=== PATIENT | female | born 1935 | race American Indian/Alaskan Native ===

== ENCOUNTER 2019-05-26 09:23 | Outpatient (CLI) | payer MEDICARE ==
--- NOTE | 2019-05-26 11:54 | Cat Scan Report ---
CTA ABDOMEN AND PELVIS WITH CONTRAST INDICATION : ABDOMINAL AORTIC ANEURYSM WITHOUT RUPTURE/ICD-10:171.4:. TECHNIQUE: Axial imaging performed through the abdomen and pelvis, with contrast bolus timing set to maximize opacification of the aorta. 3-plane MIP reformatted images were obtained. All CT scans at this location are performed using CT dose reduction for ALARA by means of automated exposure control. 60 mL of Omnipaque 350 intravenous contrast administered. COMPARISON: None at this facility FINDINGS: Angiographic findings: A large infrarenal AAA is identified extending from just below the renal arter ies to the bifurcation. Maximum diameter of the AAA measures 8.1 cm in transverse dimension on image 72. A stent is identified within the aorta which appears to be discontinuous. The proximal edge of th e stent is located at the origin of the celiac axis. The midportion of the stent appears discontinuou s with 2.8 cm of separation from the distal iliac components. There is a large amount of mural thromb us within the aneurysm sac with evidence of mild extravasation of contrast at the site of discontinui ty. This is consistent with a type IIIa endoleak. There are moderate calcified plaques throughout the abdominal aorta and iliac arteries. No evidence for stenosis or dissection. No retroperitoneal hemor rhage is identified. There are moderate calcifications at the origins of the celiac axis, SMA and keith ateral single renal arteries but no hemodynamically significant stenosis is identified. The PARESH is oc cluded. Non-angiographic findings: Lungs/bones: The visualized lung bases are adequately aerated. Moderate to severe cardiomegaly is ev ident. A small pericardial effusion is also identified. Abdomen/pelvis: There is mild hepatomegaly but no evidence for mass or surface nodularity. Scattered liver cysts are noted. The biliary system, pancreas, spleen and adrenal glands are unremarkable. Bot h kidneys are atrophic with scattered cysts. No obvious mass, calculus or hydronephrosis. The bowel l oops are grossly normal. The bladder is empty. Hysterectomy changes are suspected. Bony structures ar e intact. Advanced to degenerative changes in the lower lumbar spine. Moderate dextrocurvature to the lumbar spine is also evident. 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 Please see above. The AAA measures 8.1 cm in maximum diameter. No evidence for retroperitoneal hemorrhage. Signer Name: Sabino Roth Jr, MD Signed: 05/26/2019 11:50 AM Workstation Name: [id number]
== END 2019-05-26 09:24 | disposition home or self-care (01) ==
LOC: CT 09:23
PROVIDERS: ATTEND Surgery Vascular Surgery
DX: I71.4 Abdominal aortic aneurysm, without rupture (principal)
CPT/HCPCS: 36415; 74174; 82565; 84520; Q9967

== ENCOUNTER 2019-06-04 07:26 | Inpatient (IN) | payer MEDICARE ==
[2019-06-04 08:31] LABS: Basophils % (Auto) 0.6 % (0.0-1.8); Eosinophils # (Auto) 0.3 K/mm3 (0.0-0.4); Eosinophils % (Auto) 5.7 % (0.0-4.3); Hematocrit 35.8 % (30.3-42.9); Hemoglobin 11.9 gm/dl (10.1-14.3); Lymphocytes # (Auto) 0.8 K/mm3 (1.2-5.4); Lymphocytes % (Auto) 15.1 % (13.4-35.0); Mean Corpuscular HGB Conc 33 % (30-34); Mean Corpuscular Volume 101 fl (79-97); Monocytes # (Auto) 0.4 K/mm3 (0.0-0.8); Platelet Count 141 K/mm3 (140-440); Red Blood Count 3.54 M/mm3 (3.65-5.03); Red Cell Distribution Width 15.8 % (13.2-15.2)
[2019-06-04 08:42] LABS: Calcium 9.5 mg/dL (8.4-10.2); INR 1.15 (0.87-1.13)
[2019-06-04] MEDS ORDERED: NACL 0.9% 500 ML 500 ML IV SCH (09:00)
[2019-06-04] MEDS ORDERED: HEPARIN 10,000 UNITS/10 ML ONE (10:32)
[2019-06-04] MEDS ORDERED: HEPARIN/NS 5000 UNIT/500ML(CATH LAB) 500 ML IR ONE (10:32)
[2019-06-04] MEDS: SUBLIMAZE ONE ×2 (11:01→11:06)
[2019-06-04] MEDS: VERSED ONE ×2 (11:01→11:06)
[2019-06-04] MEDS: XYLOCAINE 2% INFILTRATI ONE ×3 (11:01→11:35)
[2019-06-04] MEDS ORDERED: TYLENOL PO PRN (12:55)
[2019-06-04] MEDS ORDERED: SODIUM CHLORIDE FLUSH SYRINGE 10 ML IV PRN (12:55)
[2019-06-04] MEDS ORDERED: ZOFRAN IV PRN (12:55)
--- NOTE | 2019-06-04 13:28 | Operative Report ---
Operative Report Operative Report: Date of Procedure: 06/04/2019 Pre-operative Diagnosis: Abdominal Aortic Aneurysm Status Post EVAR With Eviden ce of Endoleak Post-operative Diagnosis: Same With Graft Migration Procedure(s): 1. Access Left Arm AV Graft Arterial Was 6 [place] Sheath 2. Catheter in Abdominal Aorta 3. Diagnostic Abdominal Aortogram 4. Radiologic Supervision with Interpretation Surgeon: Blaine Marie M.D. Material Control Supervisor: None Anesthesia: Local and IV Sedation EBL: Minimal Counts: Correct Complications: None Condition: Stable Specimen: None Indication: The patient is an 84-year-old female with a history of an abdominal aortic aneurysm that was repaired in [place] in September 2018. She was informed that she had a type II endoleak at the completion of the procedure. Should a follow- up CT scan in February 2019 with evidence of continued endoleak and was referred to me after after moving to live with her daughter in [place]. On physical examination her aneurysm was pulsatile bleeding me to believe this was much more than a type II endoleak so I sent her for a follow-up CT scan revealing that the aneurysm had increased by greater than 1 cm and less than 4 months. Given this finding and her physical exam I felt that she needed a diagnostic angiogram to determine the exact type of endoleak and plan for possible repair. She and her daughter were given the risk, benefits, and alternative procedures and consented to the procedure. Angiographic Findings: Diagnostic aortogram was performed in multiple views including AP and several obliquities. This revealed that the celiac artery as well as the superior mesenteric artery were patent. Bilateral renal arteries were patent. The aortic endograft as well as bilateral limb extensions were patent. There was no obvious evidence of an endoleak however it became obvious that the sealing rings were in the body of the aneurysm and well below the left renal artery which was the lowest. Although I could not see angiographic evidence of endoleak this would indicate that this may be a type IA endoleak that is positional in nature. Description of Procedure: The patient was brought to the wood preserving plant laborer and laid in supine position. After she was adequately sedated her left arm was prepped and draped in normal sterile fashion. Lidocaine was used to anesthetize the skin overlying the graft and then micropuncture technique was used to access the graft towards the arterial inflow. A 6 [place] sheath was placed by Seldinger technique. A 0.035 Bentson wire and pigtail catheter were advanced into the thoracic aorta and used to cannulate the descending aorta. The catheter and wire were advanced into the abdominal aorta and a catheter was positioned just above the graft at the level of the renal arteries. An aortogram was performed in multiple views including an AP view and multiple obliquities. There was no obvious evidence of any endoleak however it was evident that the graft sealing rings were well below the renal arteries. After completing the diagnostic films I reinserted the Bentson wire and removed the pigtail catheter over the wire. The wire was then removed and a 2-0 Ethilon in a slipknot fashion was used to close the entry site after removing the sheath. A sterile dressing was then placed over the entry site and the patient was transported to the recovery area in stable condition.
--- NOTE | 2019-06-04 13:31 | Event Note ---
Date: 06/04/19 After reviewing the patient's diagnostic films as well as her CT scan and discussing the case with the [employer] Rep, the plan will be to place an extension cuff between the flow divider and the renal arteries to gain a seal in the aneurysm and treat the endoleak. This is planned for tomorrow in the salvage laborer. This will be performed in a percutaneous fashion. I have discussed this with the patient and her daughter including the risk, benefits, and alternative procedures. This includes bleeding, potential of not getting an adequate seal, and the potential for having to cover the left renal artery to gain a seal. They have expressed understanding of the procedure as well as the risks and agreed to proceed.
[2019-06-04] MEDS ORDERED: ULTRAM PO PRN (14:58)
[2019-06-04] MEDS: TUMS PO SCH ×2 (20:12→20:47)
[2019-06-04] MEDS: DICLOFENAC 1% TP SCH ×2 (20:46→21:23)
[2019-06-04] MEDS: COREG PO SCH (21:16)
[2019-06-04] MEDS: SODIUM CHLORIDE FLUSH SYRINGE 10 ML IV SCH (21:23)
[2019-06-04] MEDS ORDERED: DICLOFENAC SODIUM TP SCH (22:00)
[2019-06-04] MEDS ORDERED: NON-FORMULARY (Rosuvastatin Calcium [Crestor] 20 MG) PO SCH (22:00)
[2019-06-05] MEDS: SYNTHROID PO SCH (05:54)
[2019-06-05 06:57] LABS: Calcium 9.1 mg/dL (8.4-10.2)
[2019-06-05] MEDS: TUMS PO SCH ×3 (07:33→20:16)
[2019-06-05] MEDS ORDERED: ANCEF/STERILE WATER 2 GM/20 ML 2 GM/20 ML SYRINGE IV ONE (08:31)
[2019-06-05] MEDS ORDERED: NACL 0.9% 500 ML 500 ML ONE (08:31)
[2019-06-05] MEDS ORDERED: HEPARIN 10,000 UNITS/10 ML ONE (08:31)
[2019-06-05] MEDS ORDERED: HEPARIN/NS 5000 UNIT/500ML(CATH LAB) 1,000 ML IR ONE (08:31)
[2019-06-05] MEDS: VERSED ONE ×4 (09:20→09:48)
[2019-06-05] MEDS: SUBLIMAZE ONE ×4 (09:20→09:48)
[2019-06-05] MEDS: XYLOCAINE 2% INFILTRATI ONE ×3 (09:20→09:46)
[2019-06-05] MEDS ORDERED: CALTRATE PLUS PO SCH (10:00)
[2019-06-05] MEDS ORDERED: BIOTIN 1 MG PO SCH (10:00)
[2019-06-05] MEDS ORDERED: CALCIUM VIT D3 PO SCH (10:00)
[2019-06-05] MEDS ORDERED: SUBLIMAZE ONE (10:07)
[2019-06-05] MEDS ORDERED: VERSED ONE (10:07)
[2019-06-05] MEDS: COREG PO SCH ×2 (10:38→22:04)
[2019-06-05] MEDS: ZESTRIL PO SCH (10:39)
[2019-06-05] MEDS: DICLOFENAC 1% TP SCH ×2 (10:39→22:38)
[2019-06-05] MEDS: HALFPRIN EC PO SCH (10:39)
[2019-06-05] MEDS: SODIUM CHLORIDE FLUSH SYRINGE 10 ML IV SCH ×2 (10:39→22:08)
[2019-06-05] MEDS: NORVASC PO SCH (10:39)
--- NOTE | 2019-06-05 11:38 | Consultation ---
History of Present Illness Consult date: 06/05/19 Requesting physician: BLAINE MARIE History of present illness: This is a 84 yo AAF with past medical history of Hypertension, ESRD on HD MWF schedule, h/o AAA s/p repair in sep 2018, recently moved from [place] to [place] to live with her daughter, who was recently now admitted for elective angiogram/AAA repair since recent CT A/P showed increased AAA along with endoleak of aortic stents. Pt underwent vascular procedure this AM without complications, patient was admitted to the ICU for closer monitoring post procedure. HR was borderline low around 40s, pt is currently on carvedilol, which is on hold due to bradycardia. Last HD was on Sat, pt has LUE AVG. Pt denies fever, chills, n/v/d, CP, palpitations, dysuria, abdominal pain. Patient was seen and examined. Vitals, labs, medications, chart reviewed. Out patient medical records reviewed. She is resting peacefully in bed, states she has a CPAP machine, nasal mask, and she has not been compliant with it because of discomfort. She also gives a history of endocarditis. Her daughter who is POA, is at the bedside. Discussed with Dr. Blaine Marie, vascular surgeon Past History Past Medical History: ESRD, hypertension, other (AAA), endocarditis, sleep apnea, hypothyroidism Hyperlipidemia, HTN, Post menopausal with severe host flashes on estrogen replacement Past Surgical History: Other (AAA repair, angioplasty ), AV fistula Social history: denies: smoking, alcohol abuse, prescription drug abuse, IV drug use Family history: hypertension, daughter of breast cancer a few years ago Sister--DM; Heart disease Mother- Hypertensive disorder, CKD Medications and Allergies Allergies Allergy/AdvReac Type Severity Reaction Status Date / Time Sulfa (Sulfonamide Allergy Intermediate Hives Verified 06/04/19 08:04 Antibiotics) Home Medications Medication Instructions Recorded Confirmed Last Taken Type Acetaminophen [Acetaminophen TAB] 325 mg PO DAILY PRN 06/04/19 06/04/19 Unknown History Aspirin EC 81 mg PO DAILY 06/04/19 06/04/19 06/03/19 History 81mg Biotin [Biotin 1] 1 mg PO DAILY 06/04/19 06/04/19 06/03/19 History 1mg Calcium 600-Vit D3 400 Tablet 1 tab PO DAILY 06/04/19 06/04/19 06/03/19 History 1 Calcium Carbonate [Tums 500MG CHEW] 750 mg PO TID 06/04/19 06/04/19 06/03/19 History 750mg Carvedilol [Coreg] 25 mg PO BID 06/04/19 06/04/19 06/04/19 History 25mg Cetirizine HCl [Cetirizine 5mg tab] 10 mg PO DAILY PRN 06/04/19 06/04/19 06/03/19 History 10mg Diclofenac Sodium [Diclofono] 2.5 gm TP BID 06/04/19 06/04/19 06/03/19 History 2.5 Levothyroxine [Synthroid] 75 mcg PO DAILY 06/04/19 06/04/19 06/04/19 History 75mcg Lisinopril [Zestril TAB] 20 mg PO DAILY 06/04/19 06/04/19 06/04/19 History 20mg Rosuvastatin Calcium [Crestor] 20 mg PO QHS 06/04/19 06/04/19 06/03/19 History 20mg amLODIPine [Norvasc] 10 mg PO DAILY 06/04/19 06/04/19 06/03/19 History 10mg traMADol [Ultram 50 MG tab] 50 mg PO BID PRN 06/04/19 06/04/19 06/03/19 History 50mg Calcium/Soy/Cohosh/Melatonin 1 each PO HS 06/05/19 06/05/19 06/04/19 History [Estroven Nighttime Caplet] amLODIPine [Norvasc] 10 mg PO DAILY 06/05/19 06/05/19 06/04/19 10:00 History Active Meds: Active Medications Acetaminophen (Tylenol) 650 mg PO Q4H PRN PRN Reason: Pain MILD(1-3)/Fever >100.5/ABEL Amlodipine Besylate (Norvasc) 10 mg PO DAILY [facility] Last Admin: 06/05/19 10:39 Dose: Not Given Documented by: Aspirin (Halfprin Ec) 81 mg PO DAILY [facility] Last Admin: 06/05/19 10:39 Dose: Not Given Documented by: Atorvastatin Calcium (Lipitor) 40 mg PO QHS [facility] Last Admin: 06/04/19 21:17 Dose: 40 mg Documented by: Calcium Carbonate/Glycine (Tums) 750 mg PO TID [facility] Last Admin: 06/05/19 07:33 Dose: Not Given Documented by: Carvedilol (Coreg) 25 mg PO BID [facility] Last Admin: 06/05/19 10:38 Dose: Not Given Documented by: Diclofenac Sodium (Diclofenac 1%) 1 applic TP BID [facility] Last Admin: 06/05/19 10:39 Dose: Not Given Documented by: Levothyroxine Sodium (Synthroid) 75 mcg PO 0600 [facility] Last Admin: 06/05/19 05:54 Dose: 75 mcg Documented by: Lisinopril (Zestril) 20 mg PO DAILY [facility] Last Admin: 06/05/19 10:39 Dose: Not Given Documented by: Ondansetron HCl (Zofran) 4 mg IV Q8H PRN PRN Reason: Nausea And Vomiting Sodium Chloride (Sodium Chloride Flush Syringe 10 Ml) 10 ml IV BID [facility] Last Admin: 06/05/19 10:39 Dose: Not Given Documented by: Sodium Chloride (Sodium Chloride Flush Syringe 10 Ml) 10 ml IV PRN PRN PRN Reason: LINE FLUSH Tramadol HCl (Ultram) 50 mg PO BID PRN PRN Reason: Mild Pain unrelieved by APAP Last Admin: 06/05/19 02:48 Dose: 50 mg Documented by: Physical Examination Vital signs: Vital Signs Temp Pulse Resp BP 97.8 F 50 L 14 161/58 06/04/19 08:15 06/04/19 08:15 06/04/19 08:15 06/04/19 08:15 General appearance: no acute distress, alert Eyes: non-icteric ENT: oropharynx moist Neck: supple, no lymphadenopathy, no JVD Effort: normal Ascultation: Bilateral: diminished breath sounds Cardiovascular: regular rate and rhythm, murmur noted (systolic), other (S1,S2) Gastrointestinal: normoactive bowel sounds, soft, non-tender, non-distended Integumentary: normal Extremities: no cyanosis, no edema, pulses normal, no ischemia or petechiae, other (bilateral femoral sheats with dressings) normal mental status, non-focal exam, pupils equal and round, CN II-XII normal, motor strength normal and mood appropriate, affect normal Results - Laboratory Findings CBC and BMP: 06/04/19 08:17 06/05/19 05:57 PT/INR, D-dimer PT 14.4 Sec. (12.2-14.9) 06/04/19 08:17 INR 1.15 (0.87-1.13) H 06/04/19 08:17 Abnormal lab findings: Abnormal Labs 06/04/19 06/04/19 06/04/19 08:17 08:17 08:17 RBC 3.54 L MCV 101 H MCH 34 H RDW 15.8 H Eos % (Auto) 5.7 H Lymph # 0.8 L Seg Neutrophils % 71.6 H INR 1.15 H Sodium Potassium BUN 50 H Creatinine 8.0 H 06/05/19 05:57 RBC MCV MCH RDW Eos % (Auto) Lymph # Seg Neutrophils % INR Sodium 147 H Potassium 5.5 H BUN 60 H Creatinine 9.5 H Assessment and Plan s/p Abdominal Aortic Aneurysm Status Post EVAR With Evidence of Endoleak ESRD on HD Sleep apnea on CPAP at home- poor compliance h/o Endocarditis HTN Hypothyroidsim Hyperlipidemia Hypernatremia -HD, discussed with renal physician -VTE prophylaxis-SCDs for now -Blood pressure control, statins,, aspirin -Renal diet -Blood pressure control -Resume chronic home medications -Monitor in the ICU overnight -Closely monitor hemodynamics and electrolyte profile -Out patient follow up to optimize CPAP therapy and interphase options -Supplemental oxygen to keep O2 sats >90% -Once femoral sheaths are discontinued, start PT/OT -Monitor hemoglobin closely Care plan discussed with the patient and her daughter at the bedside. All their questions were answered. FULL CODE STATUS. Discussed with Dr. Marie. Thank you for this consult. Will follow. Please do not hesitate to call with questions or concerns.
[2019-06-05] MEDS: APRESOLINE IV PRN ×2 (12:00→18:26)
[2019-06-05] MEDS ORDERED: NACL 0.9% 100 ML IV PRN (12:27)
--- NOTE | 2019-06-05 12:29 | Consultation ---
History of Present Illness - Reason for Consult Consult date: 06/05/19 end stage renal disease, hyperkalemia Requesting physician: AXEL SOOD - History of Present Illness This is a 84 yo AAF with past medical history of Hypertension, ESRD on HD MWF schedule, h/o AAA s/p repair in sep 2018, recently moved from [place] to [place] to live with her daughter, who was recently now admitted for elective angiogram/AAA repair since recent CT A/P showed increased AAA along with endoleak of aortic stents. Pt underwent vascular procedure this AM without complications, renal consult is requested for management of ESRD/HD. last HD was on Sat, pt has LUE AVG. Pt denies fever, chills, n/v/d, CP, palpitations, dysuria, abd pain. HR was borderline low around 40s, pt is currently on carvedilol, which is on hold due to bradycardia. Past History Past Medical History: ESRD, hypertension, other (AAA) Past Surgical History: Other (AAA repair, angioplasty ) Social history: denies: smoking, alcohol abuse, prescription drug abuse, IV drug use Family history: hypertension Medications and Allergies Allergies Allergy/AdvReac Type Severity Reaction Status Date / Time Sulfa (Sulfonamide Allergy Intermediate Hives Verified 06/04/19 08:04 Antibiotics) Home Medications Medication Instructions Recorded Confirmed Last Taken Type Acetaminophen [Acetaminophen TAB] 325 mg PO DAILY PRN 06/04/19 06/04/19 Unknown History Aspirin EC 81 mg PO DAILY 06/04/19 06/04/19 06/03/19 History 81mg Biotin [Biotin 1] 1 mg PO DAILY 06/04/19 06/04/19 06/03/19 History 1mg Calcium 600-Vit D3 400 Tablet 1 tab PO DAILY 06/04/19 06/04/19 06/03/19 History 1 Calcium Carbonate [Tums 500MG CHEW] 750 mg PO TID 06/04/19 06/04/19 06/03/19 History 750mg Carvedilol [Coreg] 25 mg PO BID 06/04/19 06/04/19 06/04/19 History 25mg Cetirizine HCl [Cetirizine 5mg tab] 10 mg PO DAILY PRN 06/04/19 06/04/19 06/03/19 History 10mg Diclofenac Sodium [Diclofono] 2.5 gm TP BID 06/04/19 06/04/19 06/03/19 History 2.5 Levothyroxine [Synthroid] 75 mcg PO DAILY 06/04/19 06/04/19 06/04/19 History 75mcg Lisinopril [Zestril TAB] 20 mg PO DAILY 06/04/19 06/04/19 06/04/19 History 20mg Rosuvastatin Calcium [Crestor] 20 mg PO QHS 06/04/19 06/04/19 06/03/19 History 20mg amLODIPine [Norvasc] 10 mg PO DAILY 06/04/19 06/04/19 06/03/19 History 10mg traMADol [Ultram 50 MG tab] 50 mg PO BID PRN 06/04/19 06/04/19 06/03/19 History 50mg Calcium/Soy/Cohosh/Melatonin 1 each PO HS 06/05/19 06/05/19 06/04/19 History [Estroven Nighttime Caplet] amLODIPine [Norvasc] 10 mg PO DAILY 06/05/19 06/05/19 06/04/19 10:00 History Active Meds: Active Medications Acetaminophen (Tylenol) 650 mg PO Q4H PRN PRN Reason: Pain MILD(1-3)/Fever >100.5/ABEL Amlodipine Besylate (Norvasc) 10 mg PO DAILY [facility] Last Admin: 06/05/19 10:39 Dose: Not Given Documented by: Aspirin (Halfprin Ec) 81 mg PO DAILY [facility] Last Admin: 06/05/19 10:39 Dose: Not Given Documented by: Atorvastatin Calcium (Lipitor) 40 mg PO QHS [facility] Last Admin: 06/04/19 21:17 Dose: 40 mg Documented by: Calcium Carbonate/Glycine (Tums) 750 mg PO TID [facility] Last Admin: 06/05/19 07:33 Dose: Not Given Documented by: Carvedilol (Coreg) 25 mg PO BID [facility] Last Admin: 06/05/19 10:38 Dose: Not Given Documented by: Diclofenac Sodium (Diclofenac 1%) 1 applic TP BID [facility] Last Admin: 06/05/19 10:39 Dose: Not Given Documented by: Hydralazine HCl (Apresoline) 20 mg IV Q2HR PRN PRN Reason: Hypertension Last Admin: 06/05/19 12:00 Dose: 20 mg Documented by: Levothyroxine Sodium (Synthroid) 75 mcg PO 0600 [facility] Last Admin: 06/05/19 05:54 Dose: 75 mcg Documented by: Lisinopril (Zestril) 20 mg PO DAILY [facility] Last Admin: 06/05/19 10:39 Dose: Not Given Documented by: Ondansetron HCl (Zofran) 4 mg IV Q8H PRN PRN Reason: Nausea And Vomiting Last Admin: 06/05/19 11:54 Dose: 4 mg Documented by: Sodium Chloride (Sodium Chloride Flush Syringe 10 Ml) 10 ml IV BID [facility] Last Admin: 06/05/19 10:39 Dose: Not Given Documented by: Sodium Chloride (Sodium Chloride Flush Syringe 10 Ml) 10 ml IV PRN PRN PRN Reason: LINE FLUSH Tramadol HCl (Ultram) 50 mg PO BID PRN PRN Reason: Mild Pain unrelieved by APAP Last Admin: 06/05/19 02:48 Dose: 50 mg Documented by: Review of Systems All systems: negative Constitutional: weakness Exam - Vital Signs Vital signs: Vital Signs Temp Pulse Resp BP 97.8 F 50 L 14 161/58 06/04/19 08:15 06/04/19 08:15 06/04/19 08:15 06/04/19 08:15 - General Appearance General appearance: well-developed, well-nourished, appears stated age EENT: ATNC, PERRL, mucous membranes moist Neck: Present: neck supple Respiratory: Clear to Ascultation Heart: bradycardia, S1S2 Gastrointestinal: Present: normoactive bowel sounds Integumentary: no rash, other (no edema, LUE AVG + bruit/thrill ) Neurologic: no focal deficit, alert and oriented x3, strength 5/5, CN 3-12 intact Results - Lab Results 06/04/19 08:17 06/05/19 05:57 Most recent lab results Calcium 9.1 mg/dL (8.4-10.2) 06/05/19 05:57 Assessment and Plan - Patient Problems (1) ESRD (end stage renal disease) Current Visit: Yes Status: Acute Plan to address problem: arranged HD on MWF schedule. hold heparin since pt just had vascular procedure/AAA repair (2) Hypertensive chronic kidney disease with stage 5 chronic kidney disease or end stage renal disease Current Visit: Yes Status: Acute Plan to address problem: resume pt's home BP regimen. HD today with target UF of 2L as tolerated (3) AAA (abdominal aortic aneurysm) Current Visit: Yes Status: Acute Plan to address problem: follow vascular surgery recommendations. (4) S/P AAA (abdominal aortic aneurysm) repair Current Visit: Yes Status: Acute (5) Secondary hyperparathyroidism (of renal origin) Current Visit: Yes Status: Acute Plan to address problem: resume pt's home PO4 binders
[2019-06-05 15:39] LABS: Hepatitis B Surface Antigen Non-Reactive (Negative); Hepatitis C Virus Antibody Non-Reactive (NonReactive)
[2019-06-05] MEDS ORDERED: ZOFRAN IV PRN (17:29)
--- NOTE | 2019-06-05 17:43 | Event Note ---
Date: 06/05/19 Patient complaining of some chest pain, tightness. She denies shortness of breath or any other complaints. Will order 12 lead EKG and cardiac Enzymes.
--- NOTE | 2019-06-05 17:51 | Post Operative Note ---
Date of procedure: 06/05/19 Pre-op diagnosis: s/p EVAR with Type 1A Endoleak with Sac Enlargement Post-op diagnosis: same Findings: Late Type 2 endoleak at the completion of the case Procedure: 1. Ultrasound Guided Access Right Common Femoral Artery 2. Ultrasound Guided Access Left Common Femoral Artery 3. Bilateral Catheters in Aorta 4. Abdominal Aortogram 5. Percutaneous Repair of Abdominal Aortic Aneurysm with 22 x 45 mm Ovation iX Proximal Cuff (Postdilated with an 18 x 40 [place] Balloon) 6. Angioplasty of Right Iliac Limb with 8 x 40 [place] Balloon 7. Closure of Left Femoral Arteriotomy with ProGlide Closure Device 8. Closure of Right Femoral Arteriotomy with ProGlide Closure Device x 3 9. Radiologic Supervision with Interpretation Anesthesia: local, other (i.v. Sedation) Surgeon: AXEL SOOD Estimated blood loss: 50-100ml Pathology: none Condition: stable Disposition: ICU
[2019-06-05 18:24] LABS: Creatine Kinase MB 1.2 ng/mL (0.0-4.0)
[2019-06-05 19:16] LABS: Chol/HDL Ratio 2.62 %
[2019-06-05] MEDS: NORCO 7.5/325 PO PRN (20:19)
[2019-06-06] MEDS: SYNTHROID PO SCH (06:04)
[2019-06-06] MEDS: NORCO 7.5/325 PO PRN (06:05)
[2019-06-06 08:30] LABS: Basophils % (Auto) 0.3 % (0.0-1.8); Eosinophils # (Auto) 0.1 K/mm3 (0.0-0.4); Eosinophils % (Auto) 1.7 % (0.0-4.3); Lymphocytes # (Auto) 0.9 K/mm3 (1.2-5.4); Lymphocytes % (Auto) 13.9 % (13.4-35.0); Mean Corpuscular HGB Conc 33 % (30-34); Mean Corpuscular Volume 101 fl (79-97); Monocytes # (Auto) 0.6 K/mm3 (0.0-0.8); Platelet Count 106 K/mm3 (140-440); Red Blood Count 2.64 M/mm3 (3.65-5.03); Red Cell Distribution Width 15.7 % (13.2-15.2)
[2019-06-06 08:47] LABS: Hematocrit 26.6 % (30.3-42.9); Hemoglobin 8.8 gm/dl (10.1-14.3)
[2019-06-06] MEDS: NORVASC PO SCH (09:00)
[2019-06-06] MEDS: ZESTRIL PO SCH (09:01)
[2019-06-06] MEDS: HALFPRIN EC PO SCH (09:01)
[2019-06-06] MEDS: COREG PO SCH (09:02)
[2019-06-06] MEDS: SODIUM CHLORIDE FLUSH SYRINGE 10 ML IV SCH (09:03)
[2019-06-06] MEDS: TUMS PO SCH (09:03)
[2019-06-06] MEDS: DICLOFENAC 1% TP SCH (09:04)
--- NOTE | 2019-06-06 09:51 | Progress Note ---
Assessment and Plan s/p Abdominal Aortic Aneurysm Status Post EVAR With Evidence of Endoleak ESRD on HD Sleep apnea on CPAP at home- poor compliance h/o Endocarditis HTN Hypothyroidsim Hyperlipidemia Hypernatremia - HD, discussed with renal physician - VTE prophylaxis-SCDs for now - Blood pressure control, statins,, aspirin - Renal diet - Blood pressure control - Resume chronic home medications - Monitor in the ICU overnight - Closely monitor hemodynamics and electrolyte profile - Out patient follow up to optimize CPAP therapy and interphase options - Supplemental oxygen to keep O2 sats >90% - Once femoral sheaths are discontinued, start PT/OT - Monitor hemoglobin closely Care plan discussed with the patient and her daughter at the bedside. All their questions were answered. FULL CODE STATUS. Subjective Date of service: 06/06/19 Principal diagnosis: AAA s/p EVAR; ESRD on HD/UF; LAN; h/o Endocarditis; HTN; Hypothyroidsim Interval history: Patient is seen today for: Abdominal Aortic Aneurysm s/p EVAR; ESRD on HD/UF; LAN; h/o Endocarditis; HTN; Hypothyroidsim; Hyperlipidemia; Hypernatremia Seen and examined at bedside; 24hour events reviewed; nursing and respiratory care staff consulted; no adverse overnight events reported to me; Objective Vital Signs - 12hr 06/05/19 06/05/19 06/05/19 22:01 22:04 22:11 Temperature Pulse Rate 58 L 57 L 59 L Pulse Rate [ Apical] Pulse Rate [ From Monitor] Respiratory 10 L 14 Rate Blood Pressure 159/51 150/51 159/51 Blood Pressure [Right] O2 Sat by Pulse 95 98 Oximetry 06/05/19 06/05/19 06/05/19 22:21 22:26 22:31 Temperature Pulse Rate 60 60 60 Pulse Rate [ Apical] Pulse Rate [ From Monitor] Respiratory 17 14 10 L Rate Blood Pressure 166/56 166/59 171/60 Blood Pressure [Right] O2 Sat by Pulse 96 97 98 Oximetry 06/05/19 06/05/19 06/05/19 22:41 22:51 22:53 Temperature Pulse Rate 58 L 65 70 Pulse Rate [ Apical] Pulse Rate [ From Monitor] Respiratory 15 13 20 Rate Blood Pressure 171/60 162/54 162/54 Blood Pressure [Right] O2 Sat by Pulse 97 99 98 Oximetry 06/05/19 06/05/19 06/05/19 23:01 23:07 23:11 Temperature 98.6 F Pulse Rate 60 61 Pulse Rate [ Apical] Pulse Rate [ From Monitor] Respiratory 19 13 Rate Blood Pressure 173/58 173/58 Blood Pressure [Right] O2 Sat by Pulse 96 97 Oximetry 06/05/19 06/05/19 06/05/19 23:21 23:31 23:41 Temperature Pulse Rate 60 59 L 59 L Pulse Rate [ Apical] Pulse Rate [ From Monitor] Respiratory 15 11 L 14 Rate Blood Pressure 169/55 158/57 158/57 Blood Pressure [Right] O2 Sat by Pulse 96 96 96 Oximetry 06/05/19 06/06/19 06/06/19 23:51 00:00 00:01 Temperature Pulse Rate 63 64 Pulse Rate [ Apical] Pulse Rate [ 62 From Monitor] Respiratory 16 16 16 Rate Blood Pressure 162/60 168/59 Blood Pressure [Right] O2 Sat by Pulse 96 100 95 Oximetry 06/06/19 06/06/19 06/06/19 00:11 00:18 00:21 Temperature Pulse Rate 59 L 62 61 Pulse Rate [ Apical] Pulse Rate [ From Monitor] Respiratory 14 13 Rate Blood Pressure 168/59 166/57 Blood Pressure [Right] O2 Sat by Pulse 95 96 Oximetry 06/06/19 06/06/19 06/06/19 00:31 00:41 00:51 Temperature Pulse Rate 62 61 62 Pulse Rate [ Apical] Pulse Rate [ From Monitor] Respiratory 13 12 14 Rate Blood Pressure 167/57 167/57 158/52 Blood Pressure [Right] O2 Sat by Pulse 94 96 96 Oximetry 06/06/19 06/06/19 06/06/19 01:01 01:11 01:21 Temperature Pulse Rate 61 60 60 Pulse Rate [ Apical] Pulse Rate [ From Monitor] Respiratory 14 16 14 Rate Blood Pressure 159/54 159/54 160/54 Blood Pressure [Right] O2 Sat by Pulse 94 96 96 Oximetry 06/06/19 06/06/19 06/06/19 01:31 01:41 01:51 Temperature Pulse Rate 65 66 62 Pulse Rate [ Apical] Pulse Rate [ From Monitor] Respiratory 16 17 15 Rate Blood Pressure 159/57 159/57 160/57 Blood Pressure [Right] O2 Sat by Pulse 94 95 96 Oximetry 06/06/19 06/06/19 06/06/19 02:01 02:11 02:21 Temperature Pulse Rate 61 69 66 Pulse Rate [ Apical] Pulse Rate [ From Monitor] Respiratory 18 14 10 L Rate Blood Pressure 162/55 162/55 159/56 Blood Pressure [Right] O2 Sat by Pulse 92 95 96 Oximetry 06/06/19 06/06/19 06/06/19 02:30 02:40 02:50 Temperature Pulse Rate 62 59 L 65 Pulse Rate [ Apical] Pulse Rate [ From Monitor] Respiratory 16 14 16 Rate Blood Pressure 159/56 159/55 Blood Pressure [Right] O2 Sat by Pulse 95 95 94 Oximetry 06/06/19 06/06/19 06/06/19 03:00 03:10 03:17 Temperature 100 F H Pulse Rate 61 73 Pulse Rate [ Apical] Pulse Rate [ From Monitor] Respiratory 16 15 Rate Blood Pressure 159/55 161/52 Blood Pressure [Right] O2 Sat by Pulse 95 Oximetry 06/06/19 06/06/19 06/06/19 03:20 03:30 03:40 Temperature Pulse Rate 60 60 58 L Pulse Rate [ Apical] Pulse Rate [ From Monitor] Respiratory 16 15 15 Rate Blood Pressure 167/54 167/54 160/54 Blood Pressure [Right] O2 Sat by Pulse 94 96 Oximetry 06/06/19 06/06/19 06/06/19 03:50 04:00 04:10 Temperature Pulse Rate 61 61 60 Pulse Rate [ Apical] Pulse Rate [ From Monitor] Respiratory 19 16 15 Rate Blood Pressure 160/60 160/60 169/55 Blood Pressure [Right] O2 Sat by Pulse 95 96 94 Oximetry 06/06/19 06/06/19 06/06/19 04:19 04:20 04:23 Temperature Pulse Rate 58 L 60 Pulse Rate [ Apical] Pulse Rate [ 60 From Monitor] Respiratory 16 16 Rate Blood Pressure 162/54 Blood Pressure [Right] O2 Sat by Pulse 95 95 Oximetry 06/06/19 06/06/19 06/06/19 04:30 04:40 04:50 Temperature Pulse Rate 58 L 59 L 60 Pulse Rate [ Apical] Pulse Rate [ From Monitor] Respiratory 17 11 L 14 Rate Blood Pressure 162/54 161/53 173/59 Blood Pressure [Right] O2 Sat by Pulse 97 96 Oximetry 06/06/19 06/06/19 06/06/19 05:00 05:10 05:20 Temperature Pulse Rate 60 59 L 64 Pulse Rate [ Apical] Pulse Rate [ From Monitor] Respiratory 18 13 19 Rate Blood Pressure 173/59 167/51 164/57 Blood Pressure [Right] O2 Sat by Pulse 95 95 Oximetry 06/06/19 06/06/19 06/06/19 05:30 05:40 05:50 Temperature Pulse Rate 64 59 L 58 L Pulse Rate [ Apical] Pulse Rate [ From Monitor] Respiratory 17 19 17 Rate Blood Pressure 164/57 163/81 165/52 Blood Pressure [Right] O2 Sat by Pulse 96 97 96 Oximetry 06/06/19 06/06/19 06/06/19 06:00 06:10 06:20 Temperature Pulse Rate 59 L 60 59 L Pulse Rate [ Apical] Pulse Rate [ From Monitor] Respiratory 16 11 L 15 Rate Blood Pressure 165/52 169/53 165/54 Blood Pressure [Right] O2 Sat by Pulse 95 97 93 Oximetry 06/06/19 06/06/19 06/06/19 06:30 06:40 06:50 Temperature Pulse Rate 57 L 56 L 55 L Pulse Rate [ Apical] Pulse Rate [ From Monitor] Respiratory 14 16 13 Rate Blood Pressure 165/54 156/49 156/49 Blood Pressure [Right] O2 Sat by Pulse 94 94 Oximetry 06/06/19 06/06/19 06/06/19 07:00 07:10 07:20 Temperature Pulse Rate 65 56 L 55 L Pulse Rate [ Apical] Pulse Rate [ From Monitor] Respiratory 10 L 11 L 10 L Rate Blood Pressure 156/49 153/42 154/49 Blood Pressure [Right] O2 Sat by Pulse 97 96 95 Oximetry 06/06/19 06/06/19 06/06/19 07:30 07:40 07:45 Temperature Pulse Rate 55 L 55 L Pulse Rate [ 55 L Apical] Pulse Rate [ From Monitor] Respiratory 12 13 Rate Blood Pressure 154/49 143/93 Blood Pressure [Right] O2 Sat by Pulse 97 97 Oximetry 06/06/19 06/06/19 06/06/19 07:50 07:53 08:00 Temperature 98.5 F Pulse Rate 55 L 57 L 56 L Pulse Rate [ Apical] Pulse Rate [ From Monitor] Respiratory 13 11 L 10 L Rate Blood Pressure 150/47 150/47 Blood Pressure 145/97 [Right] O2 Sat by Pulse 94 96 95 Oximetry 06/06/19 06/06/19 06/06/19 08:10 08:20 08:30 Temperature Pulse Rate 59 L 55 L 66 Pulse Rate [ Apical] Pulse Rate [ From Monitor] Respiratory 14 14 12 Rate Blood Pressure 159/52 149/48 149/48 Blood Pressure [Right] O2 Sat by Pulse 96 95 97 Oximetry 06/06/19 06/06/19 06/06/19 08:40 08:50 09:00 Temperature Pulse Rate 65 57 L 58 L Pulse Rate [ Apical] Pulse Rate [ From Monitor] Respiratory 9 L 18 15 Rate Blood Pressure 154/49 149/48 149/48 Blood Pressure [Right] O2 Sat by Pulse 97 97 96 Oximetry 06/06/19 06/06/19 06/06/19 09:01 09:02 09:10 Temperature Pulse Rate 58 L 58 L 63 Pulse Rate [ Apical] Pulse Rate [ From Monitor] Respiratory 9 L Rate Blood Pressure 154/49 154/49 154/49 Blood Pressure [Right] O2 Sat by Pulse 98 Oximetry Constitutional: no acute distress, alert Eyes: non-icteric ENT: oropharynx moist Neck: supple, no lymphadenopathy, no JVD Effort: normal Ascultation: Bilateral: diminished breath sounds Cardiovascular: regular rate and rhythm, murmur noted (systolic), other (S1,S2) Gastrointestinal: normoactive bowel sounds, soft, non-tender, non-distended Integumentary: normal Extremities: no cyanosis, no edema, pulses normal, no ischemia or petechiae, other (bilateral femoral sheats with dressings) Neurologic: normal mental status, non-focal exam, pupils equal and round, CN II- XII normal, motor strength normal and Psychiatric: mood appropriate, affect normal CBC and BMP: 06/06/19 07:56 06/06/19 07:56 ABG, PT/INR, D-dimer: PT/INR, D-dimer PT 14.4 Sec. (12.2-14.9) 06/04/19 08:17 INR 1.15 (0.87-1.13) H 06/04/19 08:17 Abnormal lab findings: Abnormal Labs 06/04/19 06/04/19 06/04/19 08:17 08:17 08:17 RBC 3.54 L Hgb Hct MCV 101 H MCH 34 H RDW 15.8 H Plt Count [place] % (Auto) Eos % (Auto) 5.7 H Lymph # 0.8 L Seg Neutrophils % 71.6 H INR 1.15 H Sodium Potassium BUN 50 H Creatinine 8.0 H Troponin T 06/05/19 06/05/19 06/06/19 05:57 17:59 07:56 RBC 2.64 L Hgb 8.8 L D Hct 26.6 L D MCV 101 H MCH 33 H RDW 15.7 H Plt Count 106 L [place] % (Auto) 9.0 H Eos % (Auto) Lymph # 0.9 L Seg Neutrophils % 75.1 H INR Sodium 147 H Potassium 5.5 H BUN 60 H Creatinine 9.5 H Troponin T 0.036 H 06/06/19 07:56 RBC Hgb Hct MCV MCH RDW Plt Count [place] % (Auto) Eos % (Auto) Lymph # Seg Neutrophils % INR Sodium Potassium BUN 38 H Creatinine 7.5 H Troponin T
--- NOTE | 2019-06-06 10:45 | Progress Note ---
Assessment and Plan - Patient Problems (1) ESRD (end stage renal disease) Current Visit: Yes Status: Acute Plan to address problem: Tolerated dialysis yesterday. Continue hemodialysis on a Saturday, Saturday and Saturday schedule. Continue as an outpatient. (2) AAA (abdominal aortic aneurysm) Current Visit: Yes Status: Acute Plan to address problem: management by vascular surgeon (3) Hypertensive chronic kidney disease with stage 5 chronic kidney disease or end stage renal disease Current Visit: Yes Status: Acute Plan to address problem: Follow blood pressure on current medications (4) S/P AAA (abdominal aortic aneurysm) repair Current Visit: Yes Status: Acute Plan to address problem: Follow-up with vascular surgeon (5) Secondary hyperparathyroidism (of renal origin) Current Visit: Yes Status: Acute Plan to address problem: Continue vitamin D analog and follow PTH in the outpatient dialysis clinic Subjective Date of service: 06/06/19 Principal diagnosis: AAA s/p EVAR; ESRD on HD/UF; LAN; h/o Endocarditis; HTN; Hypothyroidsim Interval history: Patient seen lying in bed. Daughter came to the bedside. She has no complaints. No pain. No nausea or vomiting. No shortness of breath. Objective - Exam Narrative Exam: Elderly -[place]el[place] female lying in bed in no acute distress HEENT: NCAT, pink oral mucous membrane Neck: Supple, no venous distention CVS: S1S2 RRR with no murmur, rub or gallop Chest: Clear to auscultation Abdomen: Protuberant, soft, nontender, no organomegaly, bowel sounds are present Extremities: No edema Neuro: Awake, alert no focal deficits - Vital Signs Vital signs: Vital Signs - 12hr 06/05/19 06/05/19 06/05/19 22:51 22:53 23:01 Temperature Pulse Rate 65 70 60 Pulse Rate [ Apical] Pulse Rate [ From Monitor] Respiratory 13 20 19 Rate Blood Pressure 162/54 162/54 173/58 Blood Pressure [Right] O2 Sat by Pulse 99 98 96 Oximetry 06/05/19 06/05/19 06/05/19 23:07 23:11 23:21 Temperature 98.6 F Pulse Rate 61 60 Pulse Rate [ Apical] Pulse Rate [ From Monitor] Respiratory 13 15 Rate Blood Pressure 173/58 169/55 Blood Pressure [Right] O2 Sat by Pulse 97 96 Oximetry 06/05/19 06/05/19 06/05/19 23:31 23:41 23:51 Temperature Pulse Rate 59 L 59 L 63 Pulse Rate [ Apical] Pulse Rate [ From Monitor] Respiratory 11 L 14 16 Rate Blood Pressure 158/57 158/57 162/60 Blood Pressure [Right] O2 Sat by Pulse 96 96 96 Oximetry 06/06/19 06/06/19 06/06/19 00:00 00:01 00:11 Temperature Pulse Rate 64 59 L Pulse Rate [ Apical] Pulse Rate [ 62 From Monitor] Respiratory 16 16 14 Rate Blood Pressure 168/59 168/59 Blood Pressure [Right] O2 Sat by Pulse 100 95 95 Oximetry 06/06/19 06/06/19 06/06/19 00:18 00:21 00:31 Temperature Pulse Rate 62 61 62 Pulse Rate [ Apical] Pulse Rate [ From Monitor] Respiratory 13 13 Rate Blood Pressure 166/57 167/57 Blood Pressure [Right] O2 Sat by Pulse 96 94 Oximetry 06/06/19 06/06/19 06/06/19 00:41 00:51 01:01 Temperature Pulse Rate 61 62 61 Pulse Rate [ Apical] Pulse Rate [ From Monitor] Respiratory 12 14 14 Rate Blood Pressure 167/57 158/52 159/54 Blood Pressure [Right] O2 Sat by Pulse 96 96 94 Oximetry 06/06/19 06/06/19 06/06/19 01:11 01:21 01:31 Temperature Pulse Rate 60 60 65 Pulse Rate [ Apical] Pulse Rate [ From Monitor] Respiratory 16 14 16 Rate Blood Pressure 159/54 160/54 159/57 Blood Pressure [Right] O2 Sat by Pulse 96 96 94 Oximetry 06/06/19 06/06/19 06/06/19 01:41 01:51 02:01 Temperature Pulse Rate 66 62 61 Pulse Rate [ Apical] Pulse Rate [ From Monitor] Respiratory 17 15 18 Rate Blood Pressure 159/57 160/57 162/55 Blood Pressure [Right] O2 Sat by Pulse 95 96 92 Oximetry 06/06/19 06/06/19 06/06/19 02:11 02:21 02:30 Temperature Pulse Rate 69 66 62 Pulse Rate [ Apical] Pulse Rate [ From Monitor] Respiratory 14 10 L 16 Rate Blood Pressure 162/55 159/56 Blood Pressure [Right] O2 Sat by Pulse 95 96 95 Oximetry 07/27/19 07/27/19 07/27/19 02:40 02:50 03:00 Temperature Pulse Rate 59 L 65 61 Pulse Rate [ Apical] Pulse Rate [ From Monitor] Respiratory 14 16 16 Rate Blood Pressure 159/56 159/55 159/55 Blood Pressure [Right] O2 Sat by Pulse 95 94 Oximetry 06/06/19 06/06/19 06/06/19 03:10 03:17 03:20 Temperature 100 F H Pulse Rate 73 60 Pulse Rate [ Apical] Pulse Rate [ From Monitor] Respiratory 15 16 Rate Blood Pressure 161/52 167/54 Blood Pressure [Right] O2 Sat by Pulse 95 94 Oximetry 06/06/19 06/06/19 06/06/19 03:30 03:40 03:50 Temperature Pulse Rate 60 58 L 61 Pulse Rate [ Apical] Pulse Rate [ From Monitor] Respiratory 15 15 19 Rate Blood Pressure 167/54 160/54 160/60 Blood Pressure [Right] O2 Sat by Pulse 96 95 Oximetry 06/06/19 06/06/19 06/06/19 04:00 04:10 04:19 Temperature Pulse Rate 61 60 Pulse Rate [ Apical] Pulse Rate [ 60 From Monitor] Respiratory 16 15 16 Rate Blood Pressure 160/60 169/55 Blood Pressure [Right] O2 Sat by Pulse 96 94 95 Oximetry 06/06/19 06/06/19 06/06/19 04:20 04:23 04:30 Temperature Pulse Rate 58 L 60 58 L Pulse Rate [ Apical] Pulse Rate [ From Monitor] Respiratory 16 17 Rate Blood Pressure 162/54 162/54 Blood Pressure [Right] O2 Sat by Pulse 95 Oximetry 06/06/19 06/06/19 06/06/19 04:40 04:50 05:00 Temperature Pulse Rate 59 L 60 60 Pulse Rate [ Apical] Pulse Rate [ From Monitor] Respiratory 11 L 14 18 Rate Blood Pressure 161/53 173/59 173/59 Blood Pressure [Right] O2 Sat by Pulse 97 96 Oximetry 06/06/19 06/06/19 06/06/19 05:10 05:20 05:30 Temperature Pulse Rate 59 L 64 64 Pulse Rate [ Apical] Pulse Rate [ From Monitor] Respiratory 13 19 17 Rate Blood Pressure 167/51 164/57 164/57 Blood Pressure [Right] O2 Sat by Pulse 95 95 96 Oximetry 06/06/19 06/06/19 06/06/19 05:40 05:50 06:00 Temperature Pulse Rate 59 L 58 L 59 L Pulse Rate [ Apical] Pulse Rate [ From Monitor] Respiratory 19 17 16 Rate Blood Pressure 163/81 165/52 165/52 Blood Pressure [Right] O2 Sat by Pulse 97 96 95 Oximetry 06/06/19 06/06/19 06/06/19 06:10 06:20 06:30 Temperature Pulse Rate 60 59 L 57 L Pulse Rate [ Apical] Pulse Rate [ From Monitor] Respiratory 11 L 15 14 Rate Blood Pressure 169/53 165/54 165/54 Blood Pressure [Right] O2 Sat by Pulse 97 93 Oximetry 06/06/19 06/06/19 06/06/19 06:40 06:50 07:00 Temperature Pulse Rate 56 L 55 L 65 Pulse Rate [ Apical] Pulse Rate [ From Monitor] Respiratory 16 13 10 L Rate Blood Pressure 156/49 156/49 156/49 Blood Pressure [Right] O2 Sat by Pulse 94 94 97 Oximetry 06/06/19 06/06/19 06/06/19 07:10 07:20 07:30 Temperature Pulse Rate 56 L 55 L 55 L Pulse Rate [ Apical] Pulse Rate [ From Monitor] Respiratory 11 L 10 L 12 Rate Blood Pressure 153/42 154/49 154/49 Blood Pressure [Right] O2 Sat by Pulse 96 95 97 Oximetry 06/06/19 06/06/19 06/06/19 07:40 07:45 07:50 Temperature Pulse Rate 55 L 55 L Pulse Rate [ 55 L Apical] Pulse Rate [ From Monitor] Respiratory 13 13 Rate Blood Pressure 143/93 150/47 Blood Pressure [Right] O2 Sat by Pulse 97 94 Oximetry 06/06/19 06/06/19 06/06/19 07:53 08:00 08:10 Temperature 98.5 F Pulse Rate 57 L 56 L 59 L Pulse Rate [ Apical] Pulse Rate [ From Monitor] Respiratory 11 L 10 L 14 Rate Blood Pressure 150/47 159/52 Blood Pressure 145/97 [Right] O2 Sat by Pulse 96 95 96 Oximetry 06/06/19 06/06/19 06/06/19 08:20 08:30 08:40 Temperature Pulse Rate 55 L 66 65 Pulse Rate [ Apical] Pulse Rate [ From Monitor] Respiratory 14 12 9 L Rate Blood Pressure 149/48 149/48 154/49 Blood Pressure [Right] O2 Sat by Pulse 95 97 97 Oximetry 06/06/19 06/06/19 06/06/19 08:50 09:00 09:01 Temperature Pulse Rate 57 L 58 L 58 L Pulse Rate [ Apical] Pulse Rate [ From Monitor] Respiratory 18 15 Rate Blood Pressure 149/48 149/48 154/49 Blood Pressure [Right] O2 Sat by Pulse 97 96 Oximetry 06/06/19 06/06/19 06/06/19 09:02 09:10 09:20 Temperature Pulse Rate 58 L 63 63 Pulse Rate [ Apical] Pulse Rate [ From Monitor] Respiratory 9 L 16 Rate Blood Pressure 154/49 154/49 158/55 Blood Pressure [Right] O2 Sat by Pulse 98 97 Oximetry 06/06/19 06/06/19 06/06/19 09:30 09:40 09:50 Temperature Pulse Rate 71 65 64 Pulse Rate [ Apical] Pulse Rate [ From Monitor] Respiratory 14 13 14 Rate Blood Pressure 158/55 158/55 158/55 Blood Pressure [Right] O2 Sat by Pulse 96 Oximetry 06/06/19 10:00 Temperature Pulse Rate 63 Pulse Rate [ Apical] Pulse Rate [ From Monitor] Respiratory 13 Rate Blood Pressure 158/55 Blood Pressure [Right] O2 Sat by Pulse 99 Oximetry - Lab 06/06/19 07:56 06/06/19 07:56 Most recent lab results Calcium 9.0 mg/dL (8.4-10.2) 06/06/19 07:56 Medications & Allergies - Medications Allergies/Adverse Reactions: Allergies Sulfa (Sulfonamide Antibiotics) Allergy (Intermediate, Verified 06/04/19 08:04) Hives Home Medications: Home Medications Medication Instructions Recorded Confirmed Last Taken Type Acetaminophen [Acetaminophen TAB] 325 mg PO DAILY PRN 06/04/19 06/04/19 Unknown History Aspirin EC 81 mg PO DAILY 06/04/19 06/04/19 06/03/19 History 81mg Biotin [Biotin 1] 1 mg PO DAILY 06/04/19 06/04/19 06/03/19 History 1mg Calcium 600-Vit D3 400 Tablet 1 tab PO DAILY 06/04/19 06/04/19 06/03/19 History 1 Calcium Carbonate [Tums 500MG CHEW] 750 mg PO TID 06/04/19 06/04/19 06/03/19 History 750mg Carvedilol [Coreg] 25 mg PO BID 06/04/19 06/04/19 06/04/19 History 25mg Cetirizine HCl [Cetirizine 5mg tab] 10 mg PO DAILY PRN 06/04/19 06/04/19 06/03/19 History 10mg Diclofenac Sodium [Diclofono] 2.5 gm TP BID 06/04/19 06/04/19 06/03/19 History 2.5 Levothyroxine [Synthroid] 75 mcg PO DAILY 06/04/19 06/04/19 06/04/19 History 75mcg Lisinopril [Zestril TAB] 20 mg PO DAILY 06/04/19 06/04/19 06/04/19 History 20mg Rosuvastatin Calcium [Crestor] 20 mg PO QHS 06/04/19 06/04/19 06/03/19 History 20mg amLODIPine [Norvasc] 10 mg PO DAILY 06/04/19 06/04/19 06/03/19 History 10mg traMADol [Ultram 50 MG tab] 50 mg PO BID PRN 06/04/19 06/04/19 06/03/19 History 50mg Calcium/Soy/Cohosh/Melatonin 1 each PO HS 06/05/19 06/05/19 06/04/19 History [[place] Nighttime Caplet] amLODIPine [Norvasc] 10 mg PO DAILY 06/05/19 06/05/19 06/04/19 10:00 History Active Medications: Generic Name Dose Route Start Last Admin Trade Name Freq PRN Reason Stop Dose Admin Acetaminophen/Hydrocodone Bitart 1 each 06/05/19 12:55 06/06/19 06:05 [place] 7.5/325 PO 1 each Q4H PRN Administration Pain, Moderate (4-6) Amlodipine Besylate 10 mg 06/05/19 10:00 06/06/19 09:00 Norvasc PO 10 mg DAILY ORAL Administration Aspirin 81 mg 06/05/19 10:00 06/06/19 09:01 Halfprin Ec PO 81 mg DAILY ORAL Administration Atorvastatin Calcium 40 mg 06/04/19 22:00 06/05/19 22:06 Lipitor PO 40 mg QHS ORLA Administration Calcium Carbonate/Glycine 750 mg 06/04/19 14:00 06/06/19 09:03 Tums PO Not Given TID ORAL Carvedilol 25 mg 06/04/19 22:00 06/06/19 09:02 Coreg PO Not Given BID [facility] Diclofenac Sodium 1 applic 06/04/19 18:00 06/06/19 09:04 Diclofenac 1% TP 1 applic BID ORAL Administration Hydralazine HCl 20 mg 06/05/19 11:46 06/05/19 18:26 Apresoline IV 20 mg Q2HR PRN Administration Hypertension Sodium Chloride 100 mls @ 999 mls/hr 06/05/19 12:27 Nacl 0.9% IV CARTER PRN Hypotension Levothyroxine Sodium 75 mcg 06/05/19 06:00 06/06/19 06:04 Synthroid PO 75 mcg 0600 ORAL Administration Lisinopril 20 mg 06/05/19 10:00 06/06/19 09:01 Zestril PO 20 mg DAILY ORAL Administration Ondansetron HCl 4 mg 06/05/19 17:29 06/05/19 17:46 Zofran IV 4 mg Q4H PRN Administration Nausea And Vomiting Sodium Chloride 10 ml 06/04/19 22:00 06/06/19 09:03 Sodium Chloride Flush Syringe 10 Ml IV 10 ml BID ORAL Administration Sodium Chloride 10 ml 06/04/19 12:55 Sodium Chloride Flush Syringe 10 Ml IV PRN PRN LINE FLUSH Tramadol HCl 50 mg 06/04/19 14:58 06/05/19 02:48 Ultram PO 50 mg BID PRN Administration Mild Pain unrelieved by APAP
--- NOTE | 2019-06-06 12:12 | Progress Note ---
Assessment and Plan s/p endovascular repair of Type 1A leak of AAA. Patient is doing well. Aneurysm is nonpulsatile. Pain controlled. Groins are without hematoma. Clinically ready for discharge home. Subjective Date of service: 06/06/19 Principal diagnosis: AAA s/p EVAR; ESRD on HD/UF; LAN; h/o Endocarditis; HTN; Hypothyroidsim Interval history: No significant events overnight. No more complaints of chest pain. Cardiac enzymes from yesterday were negative and the EKG was NSR with PAC's. She has some groin pain that improves with oral narcotics. Objective - Constitutional Vitals: Vital Signs - 12hr 06/06/19 06/06/19 06/06/19 00:18 00:21 00:31 Temperature Pulse Rate 62 61 62 Pulse Rate [ Apical] Pulse Rate [ From Monitor] Respiratory 13 13 Rate Blood Pressure 166/57 167/57 Blood Pressure [Right] O2 Sat by Pulse 96 94 Oximetry 06/06/19 06/06/19 06/06/19 00:41 00:51 01:01 Temperature Pulse Rate 61 62 61 Pulse Rate [ Apical] Pulse Rate [ From Monitor] Respiratory 12 14 14 Rate Blood Pressure 167/57 158/52 159/54 Blood Pressure [Right] O2 Sat by Pulse 96 96 94 Oximetry 06/06/19 06/06/19 06/06/19 01:11 01:21 01:31 Temperature Pulse Rate 60 60 65 Pulse Rate [ Apical] Pulse Rate [ From Monitor] Respiratory 16 14 16 Rate Blood Pressure 159/54 160/54 159/57 Blood Pressure [Right] O2 Sat by Pulse 96 96 94 Oximetry 06/06/19 06/06/19 06/06/19 01:41 01:51 02:01 Temperature Pulse Rate 66 62 61 Pulse Rate [ Apical] Pulse Rate [ From Monitor] Respiratory 17 15 18 Rate Blood Pressure 159/57 160/57 162/55 Blood Pressure [Right] O2 Sat by Pulse 95 96 92 Oximetry 06/06/19 06/06/19 06/06/19 02:11 02:21 02:30 Temperature Pulse Rate 69 66 62 Pulse Rate [ Apical] Pulse Rate [ From Monitor] Respiratory 14 10 L 16 Rate Blood Pressure 162/55 159/56 Blood Pressure [Right] O2 Sat by Pulse 95 96 95 Oximetry 06/06/19 06/06/19 06/06/19 02:40 02:50 03:00 Temperature Pulse Rate 59 L 65 61 Pulse Rate [ Apical] Pulse Rate [ From Monitor] Respiratory 14 16 16 Rate Blood Pressure 159/56 159/55 159/55 Blood Pressure [Right] O2 Sat by Pulse 95 94 Oximetry 06/06/19 06/06/19 06/06/19 03:10 03:17 03:20 Temperature 100 F H Pulse Rate 73 60 Pulse Rate [ Apical] Pulse Rate [ From Monitor] Respiratory 15 16 Rate Blood Pressure 161/52 167/54 Blood Pressure [Right] O2 Sat by Pulse 95 94 Oximetry 06/06/19 06/06/19 06/06/19 03:30 03:40 03:50 Temperature Pulse Rate 60 58 L 61 Pulse Rate [ Apical] Pulse Rate [ From Monitor] Respiratory 15 15 19 Rate Blood Pressure 167/54 160/54 160/60 Blood Pressure [Right] O2 Sat by Pulse 96 95 Oximetry 06/06/19 06/06/19 06/06/19 04:00 04:10 04:19 Temperature Pulse Rate 61 60 Pulse Rate [ Apical] Pulse Rate [ 60 From Monitor] Respiratory 16 15 16 Rate Blood Pressure 160/60 169/55 Blood Pressure [Right] O2 Sat by Pulse 96 94 95 Oximetry 06/06/19 06/06/19 06/06/19 04:20 04:23 04:30 Temperature Pulse Rate 58 L 60 58 L Pulse Rate [ Apical] Pulse Rate [ From Monitor] Respiratory 16 17 Rate Blood Pressure 162/54 162/54 Blood Pressure [Right] O2 Sat by Pulse 95 Oximetry 06/06/19 06/06/19 06/06/19 04:40 04:50 05:00 Temperature Pulse Rate 59 L 60 60 Pulse Rate [ Apical] Pulse Rate [ From Monitor] Respiratory 11 L 14 18 Rate Blood Pressure 161/53 173/59 173/59 Blood Pressure [Right] O2 Sat by Pulse 97 96 Oximetry 06/06/19 06/06/19 06/06/19 05:10 05:20 05:30 Temperature Pulse Rate 59 L 64 64 Pulse Rate [ Apical] Pulse Rate [ From Monitor] Respiratory 13 19 17 Rate Blood Pressure 167/51 164/57 164/57 Blood Pressure [Right] O2 Sat by Pulse 95 95 96 Oximetry 06/06/19 06/06/19 06/06/19 05:40 05:50 06:00 Temperature Pulse Rate 59 L 58 L 59 L Pulse Rate [ Apical] Pulse Rate [ From Monitor] Respiratory 19 17 16 Rate Blood Pressure 163/81 165/52 165/52 Blood Pressure [Right] O2 Sat by Pulse 97 96 95 Oximetry 06/06/19 06/06/19 06/06/19 06:10 06:20 06:30 Temperature Pulse Rate 60 59 L 57 L Pulse Rate [ Apical] Pulse Rate [ From Monitor] Respiratory 11 L 15 14 Rate Blood Pressure 169/53 165/54 165/54 Blood Pressure [Right] O2 Sat by Pulse 97 93 Oximetry 06/06/19 06/06/19 06/06/19 06:40 06:50 07:00 Temperature Pulse Rate 56 L 55 L 65 Pulse Rate [ Apical] Pulse Rate [ From Monitor] Respiratory 16 13 10 L Rate Blood Pressure 156/49 156/49 156/49 Blood Pressure [Right] O2 Sat by Pulse 94 94 97 Oximetry 06/06/19 06/06/19 06/06/19 07:10 07:20 07:30 Temperature Pulse Rate 56 L 55 L 55 L Pulse Rate [ Apical] Pulse Rate [ From Monitor] Respiratory 11 L 10 L 12 Rate Blood Pressure 153/42 154/49 154/49 Blood Pressure [Right] O2 Sat by Pulse 96 95 97 Oximetry 06/06/19 06/06/19 06/06/19 07:40 07:45 07:50 Temperature Pulse Rate 55 L 55 L Pulse Rate [ 55 L Apical] Pulse Rate [ From Monitor] Respiratory 13 13 Rate Blood Pressure 143/93 150/47 Blood Pressure [Right] O2 Sat by Pulse 97 94 Oximetry 06/06/19 06/06/19 06/06/19 07:53 08:00 08:10 Temperature 98.5 F Pulse Rate 57 L 56 L 59 L Pulse Rate [ Apical] Pulse Rate [ From Monitor] Respiratory 11 L 10 L 14 Rate Blood Pressure 150/47 159/52 Blood Pressure 145/97 [Right] O2 Sat by Pulse 96 95 96 Oximetry 06/06/19 06/06/19 06/06/19 08:20 08:30 08:40 Temperature Pulse Rate 55 L 66 65 Pulse Rate [ Apical] Pulse Rate [ From Monitor] Respiratory 14 12 9 L Rate Blood Pressure 149/48 149/48 154/49 Blood Pressure [Right] O2 Sat by Pulse 95 97 97 Oximetry 06/06/19 06/06/1919 08:50 09:00 09:01 Temperature Pulse Rate 57 L 58 L 58 L Pulse Rate [ Apical] Pulse Rate [ From Monitor] Respiratory 18 15 Rate Blood Pressure 149/48 149/48 154/49 Blood Pressure [Right] O2 Sat by Pulse 97 96 Oximetry 06/06/19 06/06/19 06/06/19 09:02 09:10 09:20 Temperature Pulse Rate 58 L 63 63 Pulse Rate [ Apical] Pulse Rate [ From Monitor] Respiratory 9 L 16 Rate Blood Pressure 154/49 154/49 158/55 Blood Pressure [Right] O2 Sat by Pulse 98 97 Oximetry 06/06/19 06/06/19 06/06/19 09:30 09:40 09:50 Temperature Pulse Rate 71 65 64 Pulse Rate [ Apical] Pulse Rate [ From Monitor] Respiratory 14 13 14 Rate Blood Pressure 158/55 158/55 158/55 Blood Pressure [Right] O2 Sat by Pulse 96 Oximetry 06/06/19 06/06/19 06/06/19 10:00 10:10 10:20 Temperature Pulse Rate 63 62 60 Pulse Rate [ Apical] Pulse Rate [ From Monitor] Respiratory 13 15 15 Rate Blood Pressure 158/55 155/49 165/51 Blood Pressure [Right] O2 Sat by Pulse 99 98 98 Oximetry 06/06/19 06/06/19 06/06/19 10:30 10:40 10:50 Temperature Pulse Rate 62 60 57 L Pulse Rate [ Apical] Pulse Rate [ From Monitor] Respiratory 14 16 13 Rate Blood Pressure 165/51 156/48 151/48 Blood Pressure [Right] O2 Sat by Pulse 98 99 98 Oximetry 06/06/19 11:00 Temperature Pulse Rate 86 Pulse Rate [ Apical] Pulse Rate [ From Monitor] Respiratory 17 Rate Blood Pressure 165/51 Blood Pressure [Right] O2 Sat by Pulse 97 Oximetry General appearance: Present: no acute distress - Neck Neck: supple - Respiratory Respiratory effort: normal - Cardiovascular Rhythm: regular Extremities: no ischemia, normal temperature, abnormal (left AVG with palpable thrill) Extremity abnormal: other (bilateral groins without evidence of hematoma) - Gastrointestinal General gastrointestinal: Present: soft, non-tender, non-distended, other (a neurysm is nonpulsatile) Rectal Exam: deferred - Genitourinary Female genitourinary: deferred - Labs CBC & Chem 7: 06/06/19 07:56 06/06/19 07:56 Labs: Abnormal lab results 06/05/19 06/06/19 06/06/19 Range/Units 17:59 07:56 07:56 RBC 2.64 L (3.65-5.03) M/mm3 Hgb 8.8 L D (10.1-14.3) gm/dl Hct 26.6 L D (30.3-42.9) % MCV 101 H (79-97) fl MCH 33 H (28-32) pg RDW 15.7 H (13.2-15.2) % Plt Count 106 L (140-440) K/mm3 [place] % (Auto) 9.0 H (0.0-7.3) % Lymph # 0.9 L (1.2-5.4) K/mm3 Seg Neutrophils % 75.1 H (40.0-70.0) % BUN 38 H (7-17) mg/dL Creatinine 7.5 H (0.7-1.2) mg/dL Troponin T 0.036 H (0.00-0.029) ng/mL Medications & Allergies - Medications Allergies/Adverse Reactions: Allergies Sulfa (Sulfonamide Antibiotics) Allergy (Intermediate, Verified 06/04/19 08:04) Hives Home Medications: Home Medications Medication Instructions Recorded Confirmed Last Taken Type Acetaminophen [Acetaminophen TAB] 325 mg PO DAILY PRN 06/04/19 06/04/19 Unknown History Aspirin EC 81 mg PO DAILY 06/04/19 06/04/19 06/03/19 History 81mg Biotin [Biotin 1] 1 mg PO DAILY 06/04/19 06/04/19 06/03/19 History 1mg Calcium 600-Vit D3 400 Tablet 1 tab PO DAILY 06/04/19 06/04/19 06/03/19 History 1 Calcium Carbonate [Tums 500MG CHEW] 750 mg PO TID 06/04/19 06/04/19 06/03/19 History 750mg Carvedilol [Coreg] 25 mg PO BID 06/04/19 06/04/19 06/04/19 History 25mg Cetirizine HCl [Cetirizine 5mg tab] 10 mg PO DAILY PRN 06/04/19 06/04/1905/12 History 10mg Diclofenac Sodium [Diclofono] 2.5 gm TP BID 06/04/19 06/04/19 06/03/19 History 2.5 Levothyroxine [Synthroid] 75 mcg PO DAILY 06/04/19 06/04/19 06/04/19 History 75mcg Lisinopril [Zestril TAB] 20 mg PO DAILY 06/04/19 06/04/19 06/04/19 History 20mg Rosuvastatin Calcium [Crestor] 20 mg PO QHS 06/04/19 06/04/19 06/03/19 History 20mg amLODIPine [Norvasc] 10 mg PO DAILY 06/04/19 06/04/19 06/03/19 History 10mg traMADol [Ultram 50 MG tab] 50 mg PO BID PRN 06/04/19 06/04/19 06/03/19 History 50mg Calcium/Soy/Cohosh/Melatonin 1 each PO HS 06/05/19 06/05/19 06/04/19 History [[place] Nighttime Caplet] amLODIPine [Norvasc] 10 mg PO DAILY 06/05/19 06/05/19 06/04/19 10:00 History Active Medications: Generic Name Dose Route Start Last Admin Trade Name Freq PRN Reason Stop Dose Admin Acetaminophen/Hydrocodone Bitart 1 each 06/05/19 12:55 06/06/19 06:05 [place] 7.5/325 PO 1 each Q4H PRN Administration Pain, Moderate (4-6) Amlodipine Besylate 10 mg 06/05/19 10:00 06/06/19 09:00 Norvasc PO 10 mg DAILY ORAL Administration Aspirin 81 mg 06/05/19 10:00 06/06/19 09:01 Halfprin Ec PO 81 mg DAILY ORAL Administration Atorvastatin Calcium 40 mg 06/04/19 22:00 06/05/19 22:06 Lipitor PO 40 mg QHS ORAL Administration Calcium Carbonate/Glycine 750 mg 06/04/19 14:00 06/06/19 09:03 Tums PO Not Given TID ORAL Carvedilol 25 mg 06/04/19 22:00 06/06/19 09:02 Coreg PO Not Given BID ORAL Diclofenac Sodium 1 applic 06/04/19 18:00 06/06/19 09:04 Diclofenac 1% TP 1 applic BID ORAL Administration Hydralazine HCl 20 mg 06/05/19 11:46 07/26/19 18:26 Apresoline IV 20 mg Q2HR PRN Administration Hypertension Sodium Chloride 100 mls @ 999 mls/hr 06/05/19 12:27 Nacl 0.9% IV CARTER PRN Hypotension Levothyroxine Sodium 75 mcg 06/05/19 06:00 06/06/19 06:04 Synthroid PO 75 mcg 0600 ORAL Administration Lisinopril 20 mg 06/05/19 10:00 06/06/19 09:01 Zestril PO 20 mg DAILY ORAL Administration Ondansetron HCl 4 mg 06/05/19 17:29 06/05/19 17:46 Zofran IV 4 mg Q4H PRN Administration Nausea And Vomiting Sodium Chloride 10 ml 06/04/19 22:00 06/06/19 09:03 Sodium Chloride Flush Syringe 10 Ml IV 10 ml BID ORAL Administration Sodium Chloride 10 ml 06/04/19 12:55 Sodium Chloride Flush Syringe 10 Ml IV PRN PRN LINE FLUSH Tramadol HCl 50 mg 06/04/19 14:58 06/05/19 02:48 Ultram PO 50 mg BID PRN Administration Mild Pain unrelieved by APAP
[2019-06-06 12:19] VITALS: BP 170/59
--- NOTE | 2019-06-06 12:20 | Short Stay Summary ---
Short Stay Documentation Date of service: 06/06/19 Narrative H&P: See H&P - History Past Medical History: ESRD, hypertension, other (AAA) Past Surgical History: Other (AAA repair, angioplasty ) Social history: no smoking, no alcohol abuse, no prescription drug abuse, no IV drug use - Allergies and Medications Current Medications: Allergies Sulfa (Sulfonamide Antibiotics) Allergy (Intermediate, Verified 06/04/19 08:04) Hives Home Medications Medication Instructions Recorded Confirmed Last Taken Type Acetaminophen [Acetaminophen TAB] 325 mg PO DAILY PRN 06/04/19 06/04/19 Unknown History Aspirin EC 81 mg PO DAILY 06/04/19 06/04/19 06/03/19 History 81mg Biotin [Biotin 1] 1 mg PO DAILY 06/04/19 06/04/19 06/03/19 History 1mg Calcium 600-Vit D3 400 Tablet 1 tab PO DAILY 06/04/19 06/04/19 06/03/19 History 1 Calcium Carbonate [Tums 500MG CHEW] 750 mg PO TID 06/04/19 06/04/19 06/03/19 History 750mg Carvedilol [Coreg] 25 mg PO BID 06/04/19 06/04/19 06/04/19 History 25mg Cetirizine HCl [Cetirizine 5mg tab] 10 mg PO DAILY PRN 06/04/19 06/04/19 06/03/19 History 10mg Diclofenac Sodium [Diclofono] 2.5 gm TP BID 06/04/19 06/04/19 06/03/19 History 2.5 Levothyroxine [Synthroid] 75 mcg PO DAILY 06/04/19 06/04/19 06/04/19 History 75mcg Lisinopril [Zestril TAB] 20 mg PO DAILY 06/04/19 06/04/19 06/04/19 History 20mg Rosuvastatin Calcium [Crestor] 20 mg PO QHS 06/04/19 06/04/19 06/03/19 History 20mg amLODIPine [Norvasc] 10 mg PO DAILY 06/04/19 06/04/19 06/03/19 History 10mg traMADol [Ultram 50 MG tab] 50 mg PO BID PRN 06/04/19 06/04/19 06/03/19 History 50mg Calcium/Soy/Cohosh/Melatonin 1 each PO HS 06/05/19 06/05/19 06/04/19 History [[place] Nighttime Caplet] amLODIPine [Norvasc] 10 mg PO DAILY 06/05/19 06/05/19 06/04/19 10:00 History Active Medications Acetaminophen/Hydrocodone Bitart ([place] 7.5/325) 1 each PO Q4H PRN PRN Reason: Pain, Moderate (4-6) Last Admin: 06/06/19 06:05 Dose: 1 each Documented by: Amlodipine Besylate (Norvasc) 10 mg PO DAILY [facility] Last Admin: 06/06/19 09:00 Dose: 10 mg Documented by: Aspirin (Halfprin Ec) 81 mg PO DAILY [facility] Last Admin: 06/06/19 09:01 Dose: 81 mg Documented by: Atorvastatin Calcium (Lipitor) 40 mg PO QHS [facility] Last Admin: 06/05/19 22:06 Dose: 40 mg Documented by: Calcium Carbonate/Glycine (Tums) 750 mg PO TID [facility] Last Admin: 06/06/19 09:03 Dose: Not Given Documented by: Carvedilol (Coreg) 25 mg PO BID [facility] Last Admin: 06/06/19 09:02 Dose: Not Given Documented by: Diclofenac Sodium (Diclofenac 1%) 1 applic TP BID [facility] Last Admin: 06/06/19 09:04 Dose: 1 applic Documented by: Hydralazine HCl (Apresoline) 20 mg IV Q2HR PRN PRN Reason: Hypertension Last Admin: 06/05/19 18:26 Dose: 20 mg Documented by: Sodium Chloride (Nacl 0.9%) 100 mls @ 999 mls/hr IV CARTER PRN PRN Reason: Hypotension Levothyroxine Sodium (Synthroid) 75 mcg PO 0600 [facility] Last Admin: 06/06/19 06:04 Dose: 75 mcg Documented by: Lisinopril (Zestril) 20 mg PO DAILY [facility] Last Admin: 06/06/19 09:01 Dose: 20 mg Documented by: Ondansetron HCl (Zofran) 4 mg IV Q4H PRN PRN Reason: Nausea And Vomiting Last Admin: 06/05/19 17:46 Dose: 4 mg Documented by: Sodium Chloride (Sodium Chloride Flush Syringe 10 Ml) 10 ml IV BID [facility] Last Admin: 06/06/19 09:03 Dose: 10 ml Documented by: Sodium Chloride (Sodium Chloride Flush Syringe 10 Ml) 10 ml IV PRN PRN PRN Reason: LINE FLUSH Tramadol HCl (Ultram) 50 mg PO BID PRN PRN Reason: Mild Pain unrelieved by APAP Last Admin: 06/05/19 02:48 Dose: 50 mg Documented by: - Physical exam Extremities: no ischemia, normal temperature, abnormal (left AVG with palpable thrill) - Hospital course Hospital course: The patient was admitted on 06/04/2019 and underwent: Date of Procedure: 06/04/2019 Pre-operative Diagnosis: Abdominal Aortic Aneurysm Status Post EVAR With Evidence of Endoleak Post-operative Diagnosis: Same With Graft Migration Procedure(s): 1. Access Left Arm AV Graft Arterial Was 6 [place] Sheath 2. Catheter in Abdominal Aorta 3. Diagnostic Abdominal Aortogram 4. Radiologic Supervision with Interpretation Surgeon: Axel Marie M.D. Intern Product Marketing Manager: None Anesthesia: Local and IV Sedation EBL: Minimal Counts: Correct Complications: None Condition: Stable Specimen: None Indication: The patient is an 84-year-old female with a history of an abdominal aortic aneurysm that was repaired in [place] in September 2018. She was informed that she had a type II endoleak at the completion of the procedure. Should a follow- up CT scan in February 2019 with evidence of continued endoleak and was referred to me after after moving to live with her daughter in [place]. On physical examination her aneurysm was pulsatile bleeding me to believe this was much more than a type II endoleak so I sent her for a follow-up CT scan revealing that the aneurysm had increased by greater than 1 cm and less than 4 months. Given this finding and her physical exam I felt that she needed a diagnostic angiogram to determine the exact type of endoleak and plan for possible repair. She and her daughter were given the risk, benefits, and alternative procedures and consented to the procedure. Angiographic Findings: Diagnostic aortogram was performed in multiple views including AP and several obliquities. This revealed that the celiac artery as well as the superior mesenteric artery were patent. Bilateral renal arteries were patent. The aortic endograft as well as bilateral limb extensions were patent. There was no obvious evidence of an endoleak however it became obvious that the sealing rings were in the body of the aneurysm and well below the left renal artery which was the lowest. Although I could not see angiographic evidence of endoleak this would indicate that this may be a type IA endoleak that is positional in nature. Description of Procedure: The patient was brought to the labor relations specialist and laid in supine position. After she was adequately sedated her left arm was prepped and draped in normal sterile fashion. Lidocaine was used to anesthetize the skin overlying the graft and then micropuncture technique was used to access the graft towards the arterial i nflow. A 6 [place] sheath was placed by Seldinger technique. A 0.035 Bentson wire and pigtail catheter were advanced into the thoracic aorta and used to cannulate the descending aorta. The catheter and wire were advanced into the abdominal aorta and a catheter was positioned just above the graft at the level of the renal arteries. An aortogram was performed in multiple views including an AP view and multiple obliquities. There was no obvious evidence of any endoleak however it was evident that the graft sealing rings were well below the renal arteries. After completing the diagnostic films I reinserted the Bentson wire and removed the pigtail catheter over the wire. The wire was then removed and a 2-0 Ethilon in a slipknot fashion was used to close the entry site after removing the sheath. A sterile dressing was then placed over the entry site and the patient was transported to the recovery area in stable condition. Postoperatively she went to telemetry and was scheduled for the repair of her Type 1A endoleak. on 06/05/2019 she underwent: Date of procedure: 06/05/19 Pre-op diagnosis: s/p EVAR with Type 1A Endoleak with Sac Enlargement Post-op diagnosis: same Findings: Late Type 2 endoleak at the completion of the case Procedure: 1. Ultrasound Guided Access Right Common Femoral Artery 2. Ultrasound Guided Access Left Common Femoral Artery 3. Bilateral Catheters in Aorta 4. Abdominal Aortogram 5. Percutaneous Repair of Abdominal Aortic Aneurysm with 22 x 45 mm Ovation iX Proximal Cuff (Postdilated with an 18 x 40 [place] Balloon) 6. Angioplasty of Right Iliac Limb with 8 x 40 [place] Balloon 7. Closure of Left Femoral Arteriotomy with ProGlide Closure Device 8. Closure of Right Femoral Arteriotomy with ProGlide Closure Device x 3 9. Radiologic Supervision with Interpretation Anesthesia: local, other (i.v. Sedation) Surgeon: AXEL MARIE Estimated blood loss: 50-100ml Pathology: none Condition: stable Disposition: ICU Postoperatively she was transferred to the ICU where she had an uneventful postoperative course. She received hemodialysis while in the ICU. She has done well and is clinically ready for discharge home. - Disposition Condition at discharge: Good Disposition: DC-01 TO HOME OR SELFCARE Short Stay Discharge Plan Activity: other (No heavy lifting or strenuous activity for 1 week.) Wound: remove dressing (24 hours), other (ok to shower and wash the wounds with soap and water but do no soak the wounds in water for 1 week) Follow up with: AXEL MARIE MD [Staff Physician] - 14 Days (Office will call the patient on Saturday to schedule the appointment.) Prescriptions: HYDROcodone/APAP 7.5-325 [[place] 7.5/325] 1 each PO Q6HR PRN #40 tablet PRN Reason: Pain
== END 2019-06-06 15:00 | disposition home or self-care (01) | DRG 268 ==
LOC: CATHLABREC 07:26 → 4A 12:55 → CC1 06-05 11:45
PROVIDERS: ADMIT Surgery Vascular Surgery; ATTEND Surgery Vascular Surgery
PROC: B4101ZZ Fluoroscopy of Abdominal Aorta using Low Osmolar Contrast (ICD-10-PCS; 2019-06-04)
PROC: B4181ZZ Fluoroscopy of Bilateral Renal Arteries using Low Osmolar Contrast (ICD-10-PCS; 2019-06-04)
PROC: B4141ZZ Fluoroscopy of Superior Mesenteric Artery using Low Osmolar Contrast (ICD-10-PCS; 2019-06-04)
PROC: B31N1ZZ Fluoroscopy of Other Upper Arteries using Low Osmolar Contrast (ICD-10-PCS; 2019-06-04)
PROC: 04V03DZ Restriction of Abdominal Aorta with Intraluminal Device, Percutaneous Approach (ICD-10-PCS; principal; 2019-06-05)
PROC: 047C3ZZ Dilation of Right Common Iliac Artery, Percutaneous Approach (ICD-10-PCS; 2019-06-05)
PROC: B4101ZZ Fluoroscopy of Abdominal Aorta using Low Osmolar Contrast (ICD-10-PCS; 2019-06-05)
DX: T82.528A Displacement of other cardiac and vascular devices and implants, initial encounter (principal); N18.6 End stage renal disease; N25.81 Secondary hyperparathyroidism of renal origin; E87.0 Hyperosmolality and hypernatremia; I12.0 Hypertensive chronic kidney disease with stage 5 chronic kidney disease or end stage renal disease; Y83.8 Other surgical procedures as the cause of abnormal reaction of the patient, or of later complication, without mention of misadventure at the time of the procedure; G47.30 Sleep apnea, unspecified; E03.9 Hypothyroidism, unspecified; Z86.73 Personal history of transient ischemic attack (TIA), and cerebral infarction without residual deficits; Y92.098 Other place in other non-institutional residence as the place of occurrence of the external cause; Z82.49 Family history of ischemic heart disease and other diseases of the circulatory system; Z83.3 Family history of diabetes mellitus; Z80.9 Family history of malignant neoplasm, unspecified; Z87.11 Personal history of peptic ulcer disease; Z99.2 Dependence on renal dialysis; Z80.3 Family history of malignant neoplasm of breast; Z88.2 Allergy status to sulfonamides; Z79.82 Long term (current) use of aspirin; Z79.899 Other long term (current) drug therapy
CPT/HCPCS: 34701; 34713; 36200; 36415; 75625; 76937; 80048; 80061; 80074; 82550; 82553; 84484; 85025; 85610; 93005; 93010; G0378; A9270-GY; C1725; C1760; C1769; C1894; J0360; J0690; J1644; J2250; J2405; J3010; J7040; Q9967